=== PATIENT | male | born 1965 | race Caucasian/White ===

== ENCOUNTER 2020-07-29 11:37 | Emergency (ER) | payer OTHER, BC ==
[~2020-07-29] VITALS: Ht 180.3 cm; Wt 115.4 kg
[~2020-07-29 11:37] MED LIST: CYCL-1 PO
[2020-07-29 11:56] LABS: BASOPHILS % (AUTO) 0.5 % (0-1); EOSINOPHILS # (AUTO) 0.1 X10'3 (0-0.9); EOSINOPHILS % (AUTO) 1.5 % (0-6); HEMOGLOBIN 14.2 g/dl (14.0-17.9); LYMPHOCYTES # (AUTO) 2.5 X10'3 (1.1-4.8); LYMPHOCYTES % (AUTO) 35.2 % (21-51); MEAN CORPUSCULAR HEMOGLOBIN 33.8 PG (27.0-31.0); MEAN CORPUSCULAR VOLUME 102.4 FL (78-98); MEAN PLATELET VOLUME 8.8 FL (7.4-10.4); MONOCYTES # (AUTO) 0.5 X10'3 (0-0.9); MONOCYTES % (AUTO) 6.6 % (2-12); NEUTROPHILS % (AUTO) 56.2 % (42-75); PLATELET COUNT 154 X10'3 (140-440); RED BLOOD COUNT 4.19 X10'6 (4.70-6.10); RED CELL DISTRIBUTION WIDTH 13.9 % (11.5-14.5); WHITE BLOOD COUNT 7.1 X10'3 (4.5-11.0)
[2020-07-29 12:10] LABS: CLARITY,URINE CLOUDY (Clear); COLOR,URINE YELLOW (Yellow); GLUCOSE, URINE NEGATIVE (Neg); KETONES,URINE NEGATIVE (Neg); LEUKOCYTE ESTERASE ,URINE NEGATIVE (Neg); NITRITES, URINE NEGATIVE (Neg); OCCULT BLOOD,URINE LARGE (Neg); PH,URINE 5.5 (4.8-8.0); PROTEIN,URINE NEGATIVE (Neg); UROBILINOGEN,URINE 0.2 E.U/dL (0.2-1.0)
[2020-07-29 12:10] LABS: ALANINE AMINOTRANSFERASE 26 U/L (12-78); ALBUMIN 3.5 G/DL (3.4-5.0); ALKALINE PHOSPHATASE 87 IU/L (46-116); ANION GAP 7 (8-16); ASPARTATE AMINO TRANSFERASE 19 U/L (10-37); BILIRUBIN,TOTAL 0.5 MG/DL (0.1-1.0); BLOOD UREA NITROGEN 15 MG/DL (7-18); BUN/CREATININE RATIO 15.8 (5.4-32.0); CALCIUM 8.5 MG/DL (8.5-10.1); CHLORIDE 103 MMOL/L (99-107); CREATININE 0.95 MG/DL (0.60-1.10); GLUCOSE 114 MG/DL (70-104); LIPASE 253 U/L (73-393); SODIUM 136 MMOL/L (135-145); TOTAL CARBON DIOXIDE 26.1 MMOL/L (24-32); TOTAL PROTEIN 7.1 G/DL (6.4-8.2); eGFR 82 ML/MIN
[2020-07-29 12:11] LABS: UA COLLECTION TYPE CLN CATCH MIDSTREAM
[2020-07-29 12:17] LABS: RBC,URINE TNTC /HPF (0-2)
[2020-07-29 12:19] LABS: BACTERIA,URINE FEW /HPF (Neg); SQUAMOUS EPITHELIAL CELL,UR FEW /LPF (FEW)
[2020-07-29] MEDS ORDERED: normal saline 1000ML IV soln IVB ONE (12:20)
--- NOTE | 2020-07-29 12:37 | NUR ---
PT TO CT
--- NOTE | 2020-07-29 13:07 | NUR ---
order for NS 1L noted,patient reports he is voiding without difficulty.Jose POLO aware,ordered to ok to cancel order.
[2020-07-29 13:17] VITALS: BP 139/58
[2020-07-29] MEDS ORDERED: FLO0.4C PO (13:21)
[2020-07-29] MEDS ORDERED: DOCU100C40 PO (13:21)
[2020-07-29] MEDS ORDERED: HYDR-3965 PO (13:21)
== END 2020-07-29 13:35 | disposition home or self-care (01) ==
LOC: ER 11:37
DX: N20.0 Calculus of kidney (principal); R91.1 Solitary pulmonary nodule; K76.0 Fatty (change of) liver, not elsewhere classified; K57.90 Diverticulosis of intestine, part unspecified, without perforation or abscess without bleeding; R11.0 Nausea; R10.31 Right lower quadrant pain; R31.9 Hematuria, unspecified; I10 Essential (primary) hypertension; M19.90 Unspecified osteoarthritis, unspecified site; Z88.8 Allergy status to other drugs, medicaments and biological substances; Z79.899 Other long term (current) drug therapy
CPT/HCPCS: 36415; 74176; 80053; 81001; 83690; 85025; 87088; 99284

== ENCOUNTER 2020-08-08 04:25 | Emergency (ER) | payer OTHER, BC ==
[~2020-08-08] VITALS: Ht 177.8 cm; Wt 117.7 kg
[~2020-08-08 04:25] MED LIST changes: +DOCU100C40 PO; +FLO0.4C PO
[2020-08-08] MEDS ORDERED: ketorolac tromethamine 15mg/ml inj. IV ONE (05:10)
[2020-08-08] MEDS ORDERED: normal saline 1000ml 1,000 ML IV ONE (05:10)
[2020-08-08] MEDS ORDERED: ondansetron/PF 4mg/2ml inj IV ONE (05:10)
[2020-08-08 05:47] LABS: BASOPHILS # (AUTO) 0.1 X10'3 (0-0.2); BASOPHILS % (AUTO) 0.5 % (0-1); EOSINOPHILS # (AUTO) 0.1 X10'3 (0-0.9); EOSINOPHILS % (AUTO) 0.7 % (0-6); HEMATOCRIT 41.6 % (42.0-52.0); HEMOGLOBIN 14.1 g/dl (14.0-17.9); LYMPHOCYTES # (AUTO) 1.3 X10'3 (1.1-4.8); LYMPHOCYTES % (AUTO) 12.5 % (21-51); MEAN CORPUSCULAR HEMOGLOBIN 34.6 PG (27.0-31.0); MEAN CORPUSCULAR VOLUME 101.9 FL (78-98); MEAN PLATELET VOLUME 9.2 FL (7.4-10.4); MONOCYTES # (AUTO) 0.4 X10'3 (0-0.9); MONOCYTES % (AUTO) 4.3 % (2-12); NEUTROPHILS # (AUTO) 8.4 X10'3 (1.8-7.7); PLATELET COUNT 155 X10'3 (140-440); RED BLOOD COUNT 4.08 X10'6 (4.70-6.10); RED CELL DISTRIBUTION WIDTH 13.4 % (11.5-14.5); WHITE BLOOD COUNT 10.3 X10'3 (4.5-11.0)
[2020-08-08 05:52] LABS: CLARITY,URINE CLEAR (Clear); COLOR,URINE YELLOW (Yellow); GLUCOSE, URINE NEGATIVE (Neg); KETONES,URINE NEGATIVE (Neg); LEUKOCYTE ESTERASE ,URINE NEGATIVE (Neg); NITRITES, URINE NEGATIVE (Neg); OCCULT BLOOD,URINE MODERATE (Neg); PROTEIN,URINE NEGATIVE (Neg); UROBILINOGEN,URINE 0.2 E.U/dL (0.2-1.0)
[2020-08-08 05:54] LABS: ALBUMIN 3.5 G/DL (3.4-5.0); ANION GAP 11 (8-16); BLOOD UREA NITROGEN 24 MG/DL (7-18); BUN/CREATININE RATIO 15.4 (5.4-32.0); CALCIUM 8.7 MG/DL (8.5-10.1); CHLORIDE 101 MMOL/L (99-107); CREATININE 1.56 MG/DL (0.60-1.10); GLUCOSE 121 MG/DL (70-104); POTASSIUM 4.4 MMOL/L (3.5-5.1); SODIUM 136 MMOL/L (135-145); TOTAL CARBON DIOXIDE 24.2 MMOL/L (24-32); eGFR 46 ML/MIN
[2020-08-08 05:57] LABS: UA COLLECTION TYPE CLN CATCH MIDSTREAM
[2020-08-08 06:01] LABS: WBC,URINE 0-4 /HPF (0-4)
[2020-08-08 06:02] LABS: BACTERIA,URINE NONE SEEN /HPF (Neg); MUCUS STRANDS NONE SEEN /LPF (Neg); SQUAMOUS EPITHELIAL CELL,UR FEW /LPF (FEW)
[2020-08-08 06:30] VITALS: BP 131/90
[2020-08-08] MEDS ORDERED: IBUP-1984 PO (06:35)
[2020-08-08] MEDS ORDERED: ONDA4TAB6 PO (06:35)
[2020-08-08] MEDS ORDERED: TADA10TA PO (06:35)
== END 2020-08-08 07:09 | disposition home or self-care (01) ==
LOC: ER 04:26
DX: N17.9 Acute kidney failure, unspecified (principal); N20.0 Calculus of kidney; R11.2 Nausea with vomiting, unspecified; E78.00 Pure hypercholesterolemia, unspecified; I10 Essential (primary) hypertension; M19.90 Unspecified osteoarthritis, unspecified site; Z72.89 Other problems related to lifestyle; Z88.8 Allergy status to other drugs, medicaments and biological substances; Z79.899 Other long term (current) drug therapy
CPT/HCPCS: 36415; 74176; 80048; 81001; 85025; 96361; 96374; 96375; 99284; J1885; J2405; J7030

== ENCOUNTER 2020-08-10 09:38 | Observation (INO) | payer OTHER, BC ==
[~2020-08-10] VITALS: Ht 180.3 cm; Wt 114.5 kg
[~2020-08-10 09:38] MED LIST changes: +IBUP-1984 PO; +ONDA4TAB6 PO; +TADA10TA PO
[2020-08-10 10:11] LABS: CLARITY,URINE CLEAR (Clear); COLOR,URINE STRAW (Yellow); GLUCOSE, URINE NEGATIVE (Neg); KETONES,URINE NEGATIVE (Neg); LEUKOCYTE ESTERASE ,URINE NEGATIVE (Neg); NITRITES, URINE NEGATIVE (Neg); OCCULT BLOOD,URINE LARGE (Neg); PROTEIN,URINE NEGATIVE (Neg); UROBILINOGEN,URINE 0.2 E.U/dL (0.2-1.0)
[2020-08-10 10:15] LABS: UA COLLECTION TYPE CLN CATCH MIDSTREAM
[2020-08-10 10:18] LABS: BACTERIA,URINE NONE SEEN /HPF (Neg); MUCUS STRANDS NONE SEEN /LPF (Neg); RBC,URINE NONE SEEN /HPF (0-2); SQUAMOUS EPITHELIAL CELL,UR NONE SEEN /LPF (FEW); WBC,URINE NONE SEEN /HPF (0-4)
[2020-08-10] MEDS ORDERED: ketorolac tromethamine 15mg/ml inj. IM ONE (11:15)
[2020-08-10 11:39] LABS: BASOPHILS # (AUTO) 0.1 X10'3 (0-0.2); BASOPHILS % (AUTO) 0.7 % (0-1); EOSINOPHILS # (AUTO) 0.1 X10'3 (0-0.9); EOSINOPHILS % (AUTO) 1.3 % (0-6); HEMATOCRIT 44.3 % (42.0-52.0); HEMOGLOBIN 14.8 g/dl (14.0-17.9); LYMPHOCYTES # (AUTO) 1.8 X10'3 (1.1-4.8); LYMPHOCYTES % (AUTO) 20.5 % (21-51); MEAN CORPUSCULAR HEMOGLOBIN 33.9 PG (27.0-31.0); MEAN CORPUSCULAR HGB CONC 33.4 g/dL (33.0-36.5); MEAN CORPUSCULAR VOLUME 101.5 FL (78-98); MEAN PLATELET VOLUME 8.5 FL (7.4-10.4); MONOCYTES # (AUTO) 0.6 X10'3 (0-0.9); MONOCYTES % (AUTO) 7.5 % (2-12); NEUTROPHILS # (AUTO) 6.1 X10'3 (1.8-7.7); PLATELET COUNT 174 X10'3 (140-440); RED BLOOD COUNT 4.36 X10'6 (4.70-6.10); RED CELL DISTRIBUTION WIDTH 13.5 % (11.5-14.5); WHITE BLOOD COUNT 8.6 X10'3 (4.5-11.0)
[2020-08-10 11:46] LABS: ALANINE AMINOTRANSFERASE 32 U/L (12-78); ALKALINE PHOSPHATASE 103 IU/L (46-116); ANION GAP 7 (8-16); ASPARTATE AMINO TRANSFERASE 32 U/L (10-37); BILIRUBIN,TOTAL 0.7 MG/DL (0.1-1.0); BLOOD UREA NITROGEN 26 MG/DL (7-18); BUN/CREATININE RATIO 16.8 (5.4-32.0); CALCIUM 9.5 MG/DL (8.5-10.1); CHLORIDE 101 MMOL/L (99-107); CREATININE 1.55 MG/DL (0.60-1.10); GLUCOSE 97 MG/DL (70-104); POTASSIUM 5.4 MMOL/L (3.5-5.1); SODIUM 135 MMOL/L (135-145); TOTAL CARBON DIOXIDE 27.2 MMOL/L (24-32); TOTAL PROTEIN 8.1 G/DL (6.4-8.2); eGFR 46 ML/MIN
[2020-08-10] MEDS ORDERED: MELO-102 PO (12:56)
[2020-08-10] MEDS ORDERED: ONDA-103 PO (12:56)
[2020-08-10] MEDS ORDERED: GABA-530 PO (12:56)
[2020-08-10] MEDS ORDERED: HYDR12.55 PO (12:56)
[2020-08-10] MEDS ORDERED: IBUP-1986 PO (12:56)
[2020-08-10] MEDS ORDERED: AMLO5TAB16 PO (12:56)
[2020-08-10] MEDS ORDERED: ATOR10TA70 PO (12:56)
[2020-08-10] MEDS ORDERED: TADA10TA PO (12:56)
[2020-08-10] MEDS ORDERED: ondansetron/PF 4mg/2ml inj IV PRN (13:05)
[2020-08-10] MEDS ORDERED: acetaminophen 325mg tablet PO PRN (13:05)
[2020-08-10] MEDS ORDERED: mag hydrox/Alum hydrox/simeth 30ml oral suspension PO PRN (13:05)
[2020-08-10] MEDS ORDERED: morphine 2 MG/ML inj. syringe IV PRN (13:05)
[2020-08-10] MEDS ORDERED: magnesium hydroxide 30ml (MOM) UD suspension PO PRN (13:05)
[2020-08-10] MEDS: tamsulosin 0.4mg capsule PO SCH ×2 (13:59→20:14)
[2020-08-10] MEDS: normal saline 1000ml 1,000 ML IV SCH ×2 (13:59→23:03)
--- NOTE | 2020-08-10 15:02 | NUR ---
I have received report from MONICA Sethi and had the opportunity to ask questions and assume patient care.
--- NOTE | 2020-08-10 15:10 | NUR ---
Pt arrived to surgical floor via wheelchair by PCT.
[2020-08-10 15:25] VITALS: BP 144/98
[2020-08-10] MEDS ORDERED: ondansetron 4mg rapidly disintigrating tab PO PRN (15:45)
[2020-08-10 18:00] VITALS: BP 130/81
--- NOTE | 2020-08-10 18:30 | NUR ---
Problems reprioritized. Patient report given, questions answered & plan of care reviewed with MONICA Hutson.
[2020-08-10] MEDS: gabapentin 100mg capsule PO SCH (20:14)
[2020-08-11] VITALS (17 sets, daily range): BP systolic 116–161; BP diastolic 58–100
--- NOTE | 2020-08-11 01:05 | NUR ---
Pt c/o pain 07/10 states Morphine only lasted less than 40 minutes. Pt req more pain medication. RN to notifbrock BENITO. Addendum: 08/11/20 at 0106 by Jacqueline Ramos RN Amended: Links added.
[2020-08-11] MEDS ORDERED: ketorolac tromethamine 15mg/ml inj. IV ONE (01:20)
[2020-08-11 05:26] LABS: ALBUMIN 3.1 G/DL (3.4-5.0); ANION GAP 7 (8-16); BLOOD UREA NITROGEN 24 MG/DL (7-18); BUN/CREATININE RATIO 14.2 (5.4-32.0); CALCIUM 8.5 MG/DL (8.5-10.1); CHLORIDE 106 MMOL/L (99-107); CREATININE 1.69 MG/DL (0.60-1.10); GLUCOSE 92 MG/DL (70-104); POTASSIUM 4.5 MMOL/L (3.5-5.1); SODIUM 138 MMOL/L (135-145); TOTAL CARBON DIOXIDE 25.4 MMOL/L (24-32); eGFR 42 ML/MIN
[2020-08-11 05:35] LABS: BASOPHILS % (AUTO) 0.6 % (0-1); EOSINOPHILS # (AUTO) 0.2 X10'3 (0-0.9); EOSINOPHILS % (AUTO) 2.8 % (0-6); HEMATOCRIT 40.3 % (42.0-52.0); HEMOGLOBIN 13.4 g/dl (14.0-17.9); LYMPHOCYTES # (AUTO) 1.8 X10'3 (1.1-4.8); LYMPHOCYTES % (AUTO) 28.5 % (21-51); MEAN CORPUSCULAR HEMOGLOBIN 33.9 PG (27.0-31.0); MEAN CORPUSCULAR HGB CONC 33.3 g/dL (33.0-36.5); MEAN CORPUSCULAR VOLUME 101.9 FL (78-98); MEAN PLATELET VOLUME 8.4 FL (7.4-10.4); MONOCYTES # (AUTO) 0.6 X10'3 (0-0.9); MONOCYTES % (AUTO) 9.1 % (2-12); NEUTROPHILS # (AUTO) 3.8 X10'3 (1.8-7.7); PLATELET COUNT 148 X10'3 (140-440); RED BLOOD COUNT 3.95 X10'6 (4.70-6.10); RED CELL DISTRIBUTION WIDTH 13.5 % (11.5-14.5); WHITE BLOOD COUNT 6.4 X10'3 (4.5-11.0)
--- NOTE | 2020-08-11 06:50 | NUR ---
Patient in room [facility]. I have received report from MONICA Hutson and had the opportunity to ask questions and assume patient care.
[2020-08-11] MEDS: atorvastatin 10mg tablet PO SCH (07:55)
[2020-08-11] MEDS: amLODIPine 5mg tablet PO SCH (07:55)
[2020-08-11] MEDS: normal saline 1000ml 1,000 ML IV SCH ×2 (08:00→23:35)
[2020-08-11] MEDS: TADALAFIL 10 MG PO SCH (08:00)
[2020-08-11] MEDS: ceFAZolin/D5W- 1GM premix 50 ML IV SCH ×4 (08:53→23:41)
[2020-08-11] MEDS ORDERED: iohexol 300 MG/1 ML 50ml polymer ONE (13:50)
--- NOTE | 2020-08-11 13:57 | NUR ---
Report given to Pacu/recovery nurse.
[2020-08-11] MEDS ORDERED: labetalol 20mg/4ml (5mg/ml) syringe IV PRN (14:10)
[2020-08-11] MEDS ORDERED: ondansetron/PF 4mg/2ml inj IV PRN (14:10)
[2020-08-11] MEDS ORDERED: morphine 4 MG/ML inj SYRINge IV PRN (14:10)
[2020-08-11] MEDS ORDERED: meperidine/PF 25mg/ml syringe IV PRN ×3 (14:10)
[2020-08-11] MEDS ORDERED: acetaminophen 1,000mg/100ml IV 100 ML IV PRN (14:10)
[2020-08-11] MEDS ORDERED: ringers solution, lacted 1,000 ML IV SCH (14:10)
[2020-08-11] MEDS ORDERED: morphine 2 MG/ML inj. syringe IV PRN (14:10)
[2020-08-11] MEDS ORDERED: hydrALAZINE 20mg/ml inj. IV PRN (14:10)
[2020-08-11] MEDS ORDERED: proCHLORperazine 10 MG/2 ml inj IV PRN (14:10)
[2020-08-11] MEDS ORDERED: famotidine/PF 10 mg/ml inj IV ONE (14:27)
[2020-08-11] MEDS ORDERED: sevoflurane 250ml liquid IH ONE (15:04)
[2020-08-11] MEDS ORDERED: fentaNYL/PF 50MCG/1 ML 2ML syringe ONE (15:05)
[2020-08-11] MEDS ORDERED: midazolam 2 mg/2 ml injection ONE (15:14)
[2020-08-11] MEDS ORDERED: propofol inj 20 ML IV ONE (15:19)
[2020-08-11] MEDS ORDERED: ceFAZolin 1000mg inj ONE ×2 (15:19)
[2020-08-11] MEDS ORDERED: 0.9 % SODIUM CHLORIDE 10 ML VIAL ONE ×2 (15:19)
[2020-08-11] MEDS ORDERED: LIDOcaine 2% (20mg/ml) 5ml vial ONE (15:19)
[2020-08-11] MEDS ORDERED: dexamethasone sod phosphate 4mg/ml inj. ONE (15:29)
[2020-08-11] MEDS ORDERED: ondansetron/PF 4mg/2ml inj ONE (15:29)
--- NOTE | 2020-08-11 17:07 | NUR ---
Received from OR via SURGICAL BED , accompanied by Anesthesiologist PORTER and report given by Anesthesiolgist. PATIENT WITH 20G PIV IN RIGHT UE RUNNING LR AT 100.DENIES PAIN. VSS. DENIES PAIN. Addendum: 08/11/20 at 1717 by Kannan Khalil RN RN Amended: Links added.
--- NOTE | 2020-08-11 17:52 | NUR ---
ALL CRITERIA FOR DC TO THE FLOOR HAS BEEN ACHIEVED. 2 RAILS UP. BED LOW, CALL LIGHT PRESENT. GAVE REPORT TO RN . PAIN AT A TOLERABLE LEVEL AT THIS TIME. DRESSINGS CDI. CARE TURNED OVER TO MONICA RAMOS . USING URINAL AT THE TIME OF TRANSFER OF CARE. Addendum: 08/11/20 at 1801 by Kannan Khalil RN, RN Amended: Links added.
--- NOTE | 2020-08-11 18:52 | NUR ---
Problems reprioritized. Patient report given, questions answered & plan of care reviewed with MONICA Sanchez. Pt back from OR aroung 175. A&Ox4. V/S 97.5, 56,16, 94%, 141/100. Pt eating regular diet at this time. c/o mild pain with urination. receiving nurse aware.
[2020-08-11] MEDS: morphine 2 MG/ML inj. syringe IV PRN ×2 (18:53→23:37)
--- NOTE | 2020-08-11 19:08 | NUR ---
Patient in room [facility]. I have received report from MONICA Maldonado and had the opportunity to ask questions and assume patient care.
[2020-08-11] MEDS: tamsulosin 0.4mg capsule PO SCH (21:20)
[2020-08-11] MEDS: gabapentin 100mg capsule PO SCH (21:21)
[2020-08-12] VITALS: BP 140/81
[2020-08-12] MEDS: normal saline 1000ml 1,000 ML IV SCH (01:26)
[2020-08-12 03:49] VITALS: BP 110/76
[2020-08-12 05:17] LABS: ALBUMIN 3.1 G/DL (3.4-5.0); ANION GAP 9 (8-16); BLOOD UREA NITROGEN 17 MG/DL (7-18); BUN/CREATININE RATIO 16.8 (5.4-32.0); CALCIUM 8.5 MG/DL (8.5-10.1); CHLORIDE 106 MMOL/L (99-107); CREATININE 1.01 MG/DL (0.60-1.10); GLUCOSE 122 MG/DL (70-104); POTASSIUM 4.3 MMOL/L (3.5-5.1); SODIUM 138 MMOL/L (135-145); TOTAL CARBON DIOXIDE 22.6 MMOL/L (24-32); eGFR 76 ML/MIN
--- NOTE | 2020-08-12 06:26 | NUR ---
I have looked over BEE Morgan student documentation, and assessments , I agree with her documentation. I also observed and added to her report . Report was given to MONICA Almaguer
--- NOTE | 2020-08-12 06:38 | NUR ---
Problems reprioritized. Patient report given, questions answered & plan of care reviewed with MONICA Almaguer.
[2020-08-12 06:42] LABS: BASOPHILS % (AUTO) 0.2 % (0-1); EOSINOPHILS % (AUTO) 0 % (0-6); HEMATOCRIT 40.4 % (42.0-52.0); HEMOGLOBIN 13.6 g/dl (14.0-17.9); LYMPHOCYTES # (AUTO) 0.9 X10'3 (1.1-4.8); LYMPHOCYTES % (AUTO) 12.4 % (21-51); MEAN CORPUSCULAR HEMOGLOBIN 34.4 PG (27.0-31.0); MEAN CORPUSCULAR HGB CONC 33.7 g/dL (33.0-36.5); MEAN CORPUSCULAR VOLUME 101.9 FL (78-98); MEAN PLATELET VOLUME 8.7 FL (7.4-10.4); MONOCYTES # (AUTO) 0.2 X10'3 (0-0.9); MONOCYTES % (AUTO) 2.5 % (2-12); NEUTROPHILS # (AUTO) 5.9 X10'3 (1.8-7.7); NEUTROPHILS % (AUTO) 84.9 % (42-75); PLATELET COUNT 159 X10'3 (140-440); RED BLOOD COUNT 3.96 X10'6 (4.70-6.10); RED CELL DISTRIBUTION WIDTH 13.1 % (11.5-14.5)
--- NOTE | 2020-08-12 06:42 | NUR ---
Patient in room [facility]. I have received report from Daniel ANDERSON and had the opportunity to ask questions and assume patient care.
[2020-08-12 07:00] VITALS: BP 128/83
[2020-08-12] MEDS: TADALAFIL 10 MG PO SCH (08:00)
[2020-08-12 08:34] VITALS: BP_SYST 58
[2020-08-12] MEDS: atorvastatin 10mg tablet PO SCH (08:34)
[2020-08-12] MEDS: amLODIPine 5mg tablet PO SCH (08:34)
[2020-08-12] MEDS ORDERED: FLO0.4C PO (10:22)
[2020-08-12] MEDS ORDERED: TRAM50TA2 PO ×2 (10:22→10:23)
[2020-08-12] MEDS ORDERED: CEPH500C5 PO (10:22)
[2020-08-12] MEDS ORDERED: traMADol 50MG tablet PO PRN (11:20)
--- NOTE | 2020-08-12 12:00 | NUR ---
Pt DC to home. Pt is A & O x4 And in no apparent distress. pt verbalizes discharge orders and able to teach back the importance of following up with Dr Ellis. Pt states he has no issues urinating and he has only very mild pain. Pt DC with tramadol. Pt packed and carried all of his belongings himself. Pt walked to the front where his picked him up.
== END 2020-08-12 11:55 | disposition home or self-care (01) ==
LOC: ER 09:40 → ED HOLD 13:02 → SUR 3N 15:15
PROVIDERS: ADMIT Family Medicine; ATTEND Family Medicine
DX: N13.2 Hydronephrosis with renal and ureteral calculous obstruction (principal); I10 Essential (primary) hypertension; N17.0 Acute kidney failure with tubular necrosis; E78.5 Hyperlipidemia, unspecified; G62.9 Polyneuropathy, unspecified; E78.00 Pure hypercholesterolemia, unspecified; M19.90 Unspecified osteoarthritis, unspecified site; Z90.79 Acquired absence of other genital organ(s); Z79.899 Other long term (current) drug therapy; Z88.6 Allergy status to analgesic agent; Z88.8 Allergy status to other drugs, medicaments and biological substances
CPT/HCPCS: 36415; 52356; 74450; 76000; 80048; 80053; 81001; 82948; 85025; 86885; 86900; 86901; 86920; 87081; 93005; 96361; 96365; 96366; 96372; 96375; 96376; 99284; C1758; C1769; C2617; G0378; J0690; J1100; J1885; J2001; J2250; J2270; J2405; J2704; J3010; J3490; J7030; J7120; Q9967; A4618; A7000

== ENCOUNTER 2021-07-20 08:10 | Emergency (ER) | payer OTHER, BC ==
[~2021-07-20] VITALS: Ht 180.3 cm; Wt 113.6 kg
[~2021-07-20 08:10] MED LIST changes: +AMLO5TAB16 PO; +ATOR10TA70 PO; +CEPH-585 PO; -CYCL-1 PO; -DOCU100C40 PO; -FLO0.4C PO; +GABA-530 PO; -IBUP-1984 PO; +IBUP-1986 PO; +ONDA-103 PO; -ONDA4TAB6 PO
[2021-07-20 08:22] VITALS: BP 130/91
[2021-07-20] MEDS ORDERED: enoxaparin 100mg/ml syringe SUBCUT ONE (12:20)
[2021-07-20] MEDS ORDERED: APIX5TAB3 PO (12:24)
[2021-07-20] MEDS ORDERED: enoxaparin 80mg/0.8ml syringe SUBCUT ONE (12:25)
[2021-07-20] MEDS ORDERED: enoxaparin 30mg/0.3ml syringe SUBCUT ONE (12:25)
== END 2021-07-20 12:37 | disposition home or self-care (01) ==
LOC: ER 08:10
DX: I82.402 Acute embolism and thrombosis of unspecified deep veins of left lower extremity (principal); E78.00 Pure hypercholesterolemia, unspecified; I10 Essential (primary) hypertension; M19.90 Unspecified osteoarthritis, unspecified site; Z87.440 Personal history of urinary (tract) infections; Z72.89 Other problems related to lifestyle; Z88.8 Allergy status to other drugs, medicaments and biological substances; Z79.2 Long term (current) use of antibiotics; Z79.899 Other long term (current) drug therapy; Z79.82 Long term (current) use of aspirin
CPT/HCPCS: 36415; 85379; 93971; 96372; 99284; J1650

== ENCOUNTER 2022-06-20 08:08 | Outpatient (CLI) | payer OTHER ==
[~2022-06-20 08:08] MED LIST changes: +APIX5TAB3 PO; -CEPH-585 PO
== END 2022-06-20 23:59 | disposition home or self-care (01) ==
LOC: RAD 08:08
PROVIDERS: ATTEND Chiropractor
DX: M16.11 Unilateral primary osteoarthritis, right hip (principal); M25.759 Osteophyte, unspecified hip; M25.859 Other specified joint disorders, unspecified hip
CPT/HCPCS: 73521

== ENCOUNTER → 2022-08-23 | Outpatient (CLI) | payer OTHER | END | disposition home or self-care (01) | LOC: RAD 14:08 | PROVIDERS: ATTEND Chiropractor | DX: M72.2 Plantar fascial fibromatosis (principal); M77.32 Calcaneal spur, left foot; M77.31 Calcaneal spur, right foot; M19.072 Primary osteoarthritis, left ankle and foot; M19.071 Primary osteoarthritis, right ankle and foot; Z98.890 Other specified postprocedural states | CPT/HCPCS: 73630 ==

== ENCOUNTER 2025-08-03 15:31 | Outpatient (CLI) | payer OTHER ==
--- NOTE | 2025-08-04 01:17 | RADIOLOGY REPORT ---
CLINICAL INDICATION: displaced fracture of the fourth metatarsal bone of the right foot. TECHNIQUE: DI FOOT, COMPLETE (3VW MIN) Comparison: FOOT, COMPLETE (3VW MIN) on DOS: 08/23/22, FOOT, COMPLETE (3VW MIN) on DOS: 08/23/22 FINDINGS/IMPRESSION: : Subacute appearing moderately displaced fracture of the 4th metatarsal base. Retrocalcaneal enthesopathy. Soft tissues are unremarkable.
== END 2025-08-03 23:59 | disposition home or self-care (01) ==
LOC: RAD 15:31
PROVIDERS: ATTEND Podiatrist Foot & Ankle Surgery
DX: S92.341D Displaced fracture of fourth metatarsal bone, right foot, subsequent encounter for fracture with routine healing (principal); M77.31 Calcaneal spur, right foot; X58.XXXD Exposure to other specified factors, subsequent encounter
CPT/HCPCS: 73630

== ENCOUNTER 2025-10-05 11:52 | Outpatient (CLI) | payer OTHER ==
--- NOTE | 2025-10-05 12:57 | RADIOLOGY REPORT ---
CLINICAL INDICATION: RIGHT FOOT PAIN/FRACTURE TECHNIQUE: 3 radiographic views of the right foot were obtained. Comparison: DI FOOT, COMPLETE (3VW MIN) on DOS: 08/03/25 FINDINGS/IMPRESSION: There is no evidence of acute fracture or dislocation. The visualized joint space is well maintained. Postsurgical changes are visualized in the 4th metatarsal bone. The alignment is anatomical. There is no radiopaque foreign body.
== END 2025-10-05 23:59 | disposition home or self-care (01) ==
LOC: RAD 11:52
PROVIDERS: ATTEND Podiatrist Foot & Ankle Surgery
DX: S92.341D Displaced fracture of fourth metatarsal bone, right foot, subsequent encounter for fracture with routine healing (principal); X58.XXXD Exposure to other specified factors, subsequent encounter
CPT/HCPCS: 73630